=== PATIENT | male | born 1975 | race African-American/Black ===

== ENCOUNTER 2019-05-07 09:49 | Emergency (ER) | payer MEDICAID ==
[~2019-05-07] VITALS: Ht 180.3 cm; Wt 101.0 kg
[2019-05-07] MEDS ORDERED: OLAN10TA3 PO (10:06)
[2019-05-07 10:36] VITALS: BP 159/118
== END 2019-05-07 10:39 | disposition home or self-care (01) ==
LOC: ER 09:50
DX: F20.9 Schizophrenia, unspecified (principal); Z76.0 Encounter for issue of repeat prescription; Z59.0 Homelessness; Z88.8 Allergy status to other drugs, medicaments and biological substances; Z79.899 Other long term (current) drug therapy
CPT/HCPCS: 99283

== ENCOUNTER 2019-05-22 06:45 | Emergency (ER) | payer MEDICAID ==
[~2019-05-22] VITALS: Ht 180.3 cm; Wt 90.0 kg
[~2019-05-22 06:45] MED LIST: OLAN10TA3 PO
[2019-05-22 06:46] VITALS: BP 211/142
[2019-05-22] MEDS ORDERED: amLODIPine 5mg tablet PO ONE (07:10)
[2019-05-22] MEDS ORDERED: TRIA50CA2 PO (07:13)
[2019-05-22] MEDS ORDERED: OLAN10TA3 PO (07:13)
[2019-05-22] MEDS ORDERED: TRIA1CAP6 PO (08:17)
== END 2019-05-22 07:32 | disposition home or self-care (01) ==
LOC: ER 06:46
DX: F20.9 Schizophrenia, unspecified (principal); I10 Essential (primary) hypertension; Z76.0 Encounter for issue of repeat prescription; Z88.8 Allergy status to other drugs, medicaments and biological substances; Z79.899 Other long term (current) drug therapy; Z59.0 Homelessness
CPT/HCPCS: 99283